=== PATIENT | female | born 1940 | race Asian ===

== ENCOUNTER 2017-11-24 10:00 | Outpatient (RCR) | payer OTHER | END 2017-11-27 | disposition home or self-care (01) | LOC: PTY 10:00 | DX: M25.511 Pain in right shoulder (principal); S46.011D Strain of muscle(s) and tendon(s) of the rotator cuff of right shoulder, subsequent encounter ==

== ENCOUNTER 2017-12-15 10:00 | Outpatient (RCR) | payer OTHER | END 2017-12-28 | disposition home or self-care (01) | LOC: PTY 10:00 | DX: M25.511 Pain in right shoulder (principal); S46.011D Strain of muscle(s) and tendon(s) of the rotator cuff of right shoulder, subsequent encounter ==

== ENCOUNTER 2017-12-29 08:30 | Outpatient (RCR) | payer OTHER | END 2018-01-25 | disposition home or self-care (01) | LOC: PTY 08:30 | DX: M25.511 Pain in right shoulder (principal); S46.011D Strain of muscle(s) and tendon(s) of the rotator cuff of right shoulder, subsequent encounter ==

== ENCOUNTER 2018-01-27 09:00 | Outpatient (RCR) | payer OTHER | END 2018-02-25 | disposition home or self-care (01) | LOC: PTY 09:00 | DX: M25.511 Pain in right shoulder (principal); S46.011D Strain of muscle(s) and tendon(s) of the rotator cuff of right shoulder, subsequent encounter ==

== ENCOUNTER 2018-03-02 09:00 | Outpatient (RCR) | payer OTHER | END 2018-03-27 | disposition home or self-care (01) | LOC: PTY 09:00 | DX: M54.2 Cervicalgia (principal); S46.011D Strain of muscle(s) and tendon(s) of the rotator cuff of right shoulder, subsequent encounter; M25.511 Pain in right shoulder; X58.XXXD Exposure to other specified factors, subsequent encounter ==

== ENCOUNTER 2018-04-10 09:18 | Outpatient (RCR) | payer OTHER | END 2018-04-27 | disposition home or self-care (01) | LOC: PTY 09:18 | DX: M54.2 Cervicalgia (principal); S46.011D Strain of muscle(s) and tendon(s) of the rotator cuff of right shoulder, subsequent encounter; M25.511 Pain in right shoulder; X58.XXXD Exposure to other specified factors, subsequent encounter ==

== ENCOUNTER 2018-04-28 08:55 | Outpatient (RCR) | payer OTHER | END 2018-05-27 | disposition home or self-care (01) | LOC: PTY 08:55 | DX: M54.2 Cervicalgia (principal); S46.011D Strain of muscle(s) and tendon(s) of the rotator cuff of right shoulder, subsequent encounter; M25.511 Pain in right shoulder; I10 Essential (primary) hypertension; E78.5 Hyperlipidemia, unspecified; Z79.82 Long term (current) use of aspirin; M81.0 Age-related osteoporosis without current pathological fracture; X58.XXXD Exposure to other specified factors, subsequent encounter ==

== ENCOUNTER 2018-05-29 11:25 | Outpatient (RCR) | payer OTHER | END 2018-06-27 | disposition home or self-care (01) | LOC: PTY 11:25 | DX: M54.2 Cervicalgia (principal); M79.1 Myalgia; I10 Essential (primary) hypertension; E78.5 Hyperlipidemia, unspecified; F32.9 Major depressive disorder, single episode, unspecified; M81.0 Age-related osteoporosis without current pathological fracture; M19.90 Unspecified osteoarthritis, unspecified site ==